=== PATIENT | male | born 1955 | race African-American/Black ===

== ENCOUNTER 2018-07-02 14:29 | Emergency (ER) | payer MEDICAID ==
[~2018-07-02] VITALS: Ht 180.3 cm; Wt 95.3 kg
[2018-07-02] MEDS ORDERED: LISINOPRIL5 MG ORAL (14:43)
[2018-07-02] MEDS ORDERED: LANTUS SOL100 UNIT/1 SUBQ (14:43)
[2018-07-02] MEDS ORDERED: Pantoprazole Inj IV ONE (15:00)
--- NOTE | 2018-07-02 15:03 | Emergency Room Report ---
History of Present Illness General Chief Complaint: Abdominal Pain Source: Patient, Medical Record Present Illness HPI Patient is a 63-year-old male who presented after increased generalized abdominal pain. The patient was having a mini epigastric pain which did not radiate. Patient states this is worse with supine position. The patient had prior history of type 2 diabetes. He reports having the pain for several weeks. The pain waxed and waned. He reports having some episodes of vomiting. He denies any stool recently. He reports having normal flatus.The patient denies prior abdominal surgeries. Allergies: Coded Allergies: No Known Allergies (Unverified , 08/07/15) Patient History Past Medical History: see triage record Reviewed Nursing Documentation: PMH: Agreed; PSxH: Agreed Nursing Documentation-PMH Past Medical History: No History, Except For Hx Hypertension: Yes Hx Diabetes: Yes - type II Physical Exam Vital Signs Date Time Temp Pulse Resp B/P (MAP) Pulse Ox O2 Delivery O2 Flow Rate FiO2 07/02/18 14:38 98.8 99 17 173/97 97 Room Air Sp02 EP Interpretation: reviewed, normal General Appearance: normal inspection, well appearing, no apparent distress, alert, GCS 15, Chronically Ill Head: atraumatic ENT: normal ENT inspection, hearing grossly normal, normal voice Neck: normal inspection, full range of motion, supple, no bony tend Respiratory: normal inspection, lungs clear, normal breath sounds, no respiratory distress, no retraction, no wheezing Cardiovascular #1: regular rate, rhythm, no edema Gastrointestinal: normal inspection, normal bowel sounds, non tender, soft, no guarding, no hernia Genitourinary: no CVA tenderness Musculoskeletal: normal inspection, back normal, normal range of motion Neurologic: normal inspection, alert, responsive, speech normal Psychiatric: normal inspection, judgement/insight normal, mood/affect normal Skin: normal inspection, normal color, no rash Medical Decision Making Diagnostic Impression: Primary Impression: Abdominal pain Additional Impression: Diabetes ER Course Patient presented for abdominal pain. Differential diagnoses included ischemic bowel, appendicitis, perforated viscus, abdominal aortic aneurysm, inferior myocardial infarction, viral gastroenteritis. Because of complexity of patient' s case laboratory testing and imaging studies were ordered.The laboratory testing was notable for the mildly elevated creatinine level. Patient was noted to have the CT the abdomen pelvis read by radiology which showed multiple calcifications state with possible granulomatous disease. EKG interpreted by me showed normal sinus rhythm with a rate of [address] or T wave changes. The urine drug she was noted be positive for cocaine. Patient was given IV Ativan as well as acid blockers. The patient was discussed with Dr. Cameron Gonzalez for possible transfer to [facility]. Labs Test 07/02/18 15:22 07/02/18 16:00 White Blood Count 11.3 K/UL (4.8-10.8) Red Blood Count 3.54 M/UL (4.70-6.10) Hemoglobin 10.6 G/DL (14.2-18.0) Hematocrit 31.4 % (42.0-52.0) Mean Corpuscular Volume 89 FL (80-99) Mean Corpuscular Hemoglobin 29.8 PG (27.0-31.0) Mean Corpuscular Hemoglobin Concent 33.7 G/DL (32.0-36.0) Red Cell Distribution Width 10.9 % (11.6-14.8) Platelet Count 264 K/UL (150-450) Mean Platelet Volume 7.0 FL (6.5-10.1) Neutrophils (%) (Auto) 72.9 % (45.0-75.0) Lymphocytes (%) (Auto) 17.8 % (20.0-45.0) Monocytes (%) (Auto) 7.7 % (1.0-10.0) Eosinophils (%) (Auto) 0.4 % (0.0-3.0) Basophils (%) (Auto) 1.2 % (0.0-2.0) Sodium Level 136 MMOL/L (136-145) Potassium Level 4.1 MMOL/L (3.5-5.1) Chloride Level 101 MMOL/L (98-107) Carbon Dioxide Level 25 MMOL/L (21-32) Anion Gap 10 mmol/L (5-15) Blood Urea Nitrogen 16 mg/dL (7-18) Creatinine 1.5 MG/DL (0.55-1.30) Estimat Glomerular Filtration Rate 57.7 mL/min (>60) Glucose Level 157 MG/DL (74-106) Calcium Level 9.1 MG/DL (8.5-10.1) Total Bilirubin 1.5 MG/DL (0.2-1.0) Direct Bilirubin 0.2 MG/DL (0.0-0.3) Aspartate Amino Transf (AST/SGOT) 29 U/L (15-37) Alanine Aminotransferase (ALT/SGPT) 17 U/L (12-78) Alkaline Phosphatase 55 U/L (46-116) Troponin I 0.038 ng/mL (0.000-0.056) Total Protein 7.3 G/DL (6.4-8.2) Albumin 2.7 G/DL (3.4-5.0) Globulin 4.6 g/dL Albumin/Globulin Ratio 0.6 (1.0-2.7) Lipase 41 U/L (73-393) Urine Color Pale yellow Urine Appearance Clear Urine pH 5 (4.5-8.0) Urine Specific [place] 1.015 (1.005-1.035) Urine Protein 4+ (NEGATIVE) Urine Glucose (UA) 1+ (NEGATIVE) Urine Ketones 3+ (NEGATIVE) Urine Blood 3+ (NEGATIVE) Urine Nitrite Negative (NEGATIVE) Urine Bilirubin Negative (NEGATIVE) Urine Urobilinogen Normal MG/DL (0.0-1.0) Urine Leukocyte Esterase Negative (NEGATIVE) Urine RBC 5-10 /HPF (0 - 0) Urine WBC 2-4 /HPF (0 - 0) Urine Squamous Epithelial Cells None /LPF (NONE/OCC) Urine Bacteria Few /HPF (NONE) Urine Fine Granular Casts 0-2 /LPF (NONE) Urine Opiates Screen Negative (NEGATIVE) Urine Barbiturates Screen Negative (NEGATIVE) Phencyclidine (PCP) Screen Negative (NEGATIVE) Urine Amphetamines Screen Negative (NEGATIVE) Urine Benzodiazepines Screen Negative (NEGATIVE) Urine Cocaine Screen Positive (NEGATIVE) Urine Marijuana (THC) Screen Negative (NEGATIVE) EKG Diagnostic Results Rate: normal Rhythm: NSR ST Segments: no acute changes Last Vital Signs Date Time Temp Pulse Resp B/P (MAP) Pulse Ox O2 Delivery O2 Flow Rate FiO2 07/02/18 14:38 98.8 99 17 173/97 97 Room Air Status: improved Disposition: XFER SHT-TRM HOSP Condition: Stable Enzo Dorsey MD Jul 02, 2018 15:03
[2018-07-02] MEDS ORDERED: Isovue-300 100ml vial INJ PRN (15:15)
[2018-07-02 15:50] LABS: BASOPHILS % (AUTO) 1.2 % (0.0-2.0); EOSINOPHILS % (AUTO) 0.4 % (0.0-3.0); HEMATOCRIT 31.4 % (42.0-52.0); HEMOGLOBIN 10.6 G/DL (14.2-18.0); LYMPHOCYTES % (AUTO) 17.8 % (20.0-45.0); MEAN CORPUSCULAR VOLUME 89 FL (80-99); MONOCYTES % (AUTO) 7.7 % (1.0-10.0); NEUTROPHILS % (AUTO) 72.9 % (45.0-75.0); PLATELET COUNT 264 K/UL (150-450); RED BLOOD COUNT 3.54 M/UL (4.70-6.10); RED CELL DISTRIBUTION WIDTH 10.9 % (11.6-14.8); WHITE BLOOD COUNT 11.3 K/UL (4.8-10.8)
[2018-07-02 15:55] LABS: ANION GAP 10 mmol/L (5-15); BLOOD UREA NITROGEN 16 mg/dL (7-18); CALCIUM 9.1 MG/DL (8.5-10.1); CARBON DIOXIDE 25 MMOL/L (21-32); CHLORIDE 101 MMOL/L (98-107); CREATININE 1.5 MG/DL (0.55-1.30); POTASSIUM 4.1 MMOL/L (3.5-5.1); SODIUM 136 MMOL/L (136-145)
[2018-07-02 16:05] LABS: ALANINE AMINOTRANSFERASE 17 U/L (12-78); ALBUMIN 2.7 G/DL (3.4-5.0); ALBUMIN/GLOBULIN RATIO 0.6 (1.0-2.7); ALKALINE PHOSPHATASE 55 U/L (46-116); ASPARTATE AMINO TRANSFERASE 29 U/L (15-37); BILIRUBIN,TOTAL 1.5 MG/DL (0.2-1.0)
[2018-07-02 16:07] LABS: BILIRUBIN,DIRECT 0.2 MG/DL (0.0-0.3)
[2018-07-02 16:29] LABS: APPEARANCE,URINE CLEAR; BILIRUBIN, URINE NEGATIVE (NEGATIVE); COLOR,URINE PALE YELLOW; GLUCOSE, URINE (UA) 1+ (NEGATIVE); KETONES,URINE 3+ (NEGATIVE); LEUKOCYTE ESTERASE ,URINE NEGATIVE (NEGATIVE); NITRITE,URINE NEGATIVE (NEGATIVE); PH,URINE 5 (4.5-8.0); PROTEIN,URINE 4+ (NEGATIVE); UROBILINOGEN,URINE NORMAL MG/DL (0.0-1.0)
--- NOTE | 2018-07-02 16:54 | Diagnostic Imaging Report ---
Indication: Abdominal pain Technique: Continuous helical transaxial imaging of the abdomen and pelvis was obtained from the lung bases to the pubic symphysis. No intravenous contrast was administered. Coronal 2-D reformats were also obtained. Automatic Exposure Control was utilized. Total Dose length Product (DLP): 651.[address] Dose Index Volume (CTDIvol): 12.37 mGy Comparison: none Findings: The lung bases are clear. Small calcifications are noted within the liver nonspecific but probably due to old granulomatous disease. There is perinephric stranding which is nonspecific. No hydronephrosis or nephrolithiasis identified. Gallstones are present. Aorta is moderately calcified. The appendix is normal. There is no evidence of bowel obstruction. No free fluid or free air identified. Small left inguinal hernia containing fat demonstrated. IMPRESSION: Cholelithiasis. Atherosclerotic vascular disease Small hiatal hernia. Tiny calcifications within the liver nonspecific. Possibly old granulomatous disease Normal appendix. Small left inguinal hernia containing fat. The CT scanner at [facility] is accredited by the [employer] and the scans are performed using dose optimization techniques as appropriate to a performed exam including Automatic Exposure control.
[2018-07-02] MEDS ORDERED: LORazepam Inj 2mg/ml 1ml IV ONE (17:00)
[2018-07-02 17:08] VITALS: BP 165/94
[2018-07-02] MEDS ORDERED: cefTRIAXone 1 GM in NS 55 ML IVPB ONE (17:15)
[2018-07-02 19:14] VITALS: BP 181/96
[2018-07-02 19:30] VITALS: BP 144/78
[2018-07-02 19:59] VITALS: BP 144/78
== END 2018-07-02 20:00 | disposition short-term general hospital (02) ==
LOC: EMR 16:11 → EDBEDREQ 16:29 → EMR 20:00
DX: R10.84 Generalized abdominal pain (principal); I10 Essential (primary) hypertension; E11.9 Type 2 diabetes mellitus without complications
CPT/HCPCS: 36415; 74176; 80053; 80307; 81003; 82248; 83690; 84484; 85025; 96361; 96365; 96375; 99285; C9113; J0696; J2405